=== PATIENT | female | born 1950 | race Two or more races ===

== ENCOUNTER 2024-08-12 10:17 | Outpatient (CLI) | payer OTHER | END 2024-08-12 10:18 | disposition home or self-care (01) | LOC: NUCLEAR 10:17 | PROVIDERS: ATTEND Psychiatry & Neurology Clinical Neurophysiology | DX: F03.90 Unspecified dementia, unspecified severity, without behavioral disturbance, psychotic disturbance, mood disturbance, and anxiety (principal) | CPT/HCPCS: 78803; A9557 ==